=== PATIENT | female | born 1955 | race Caucasian/White ===

== ENCOUNTER → 2020-10-12 09:23 | Outpatient (CLI) | payer OTHER, SELFPAY ==
--- NOTE | ~2020-10-12 | XR_ITS ---
EXAMINATION: XR chest 2V EXAM DATE: 10/12/2020 09:40 INDICATION: J18.9 - Pneumonia, unspecified organism. TECHNIQUE: Frontal and lateral projections of the chest obtained and reviewed. Comparison is made to prior examination from 10/03/2017. FINDINGS: There is moderate chronic hyperinflation. Small amount of left basilar atelectasis unchang ed. The lungs are otherwise clear. There are no pleural effusions. The cardiomediastinal silhouette is within normal limits. There is no pneumothorax suspected. The bones and soft tissues are unrema rkable. IMPRESSION: 1. Left basilar linear atelectasis. 2. Hyperinflation. Reviewed, dictated and finalized at location A. 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
== END ==
PROVIDERS: PCP Family Medicine; Visit Provider Nurse Practitioner Family
DX: J18.9 Pneumonia, unspecified organism (principal); R91.8 Other nonspecific abnormal finding of lung field
CPT/HCPCS: 71046

== ENCOUNTER → 2020-10-27 11:43 | Outpatient (CLI) | payer OTHER, SELFPAY ==
--- NOTE | ~2020-10-27 | US_ITS ---
EXAMINATION: US thyroid DATE: 10/27/2020 11:58 INDICATION: Nontoxic thyroid nodule TECHNIQUE: Multiple ultrasound images of the thyroid were obtained. COMPARISON: None. FINDINGS: The right thyroid lobe measures 4.7 x 1.6 x 1.1 cm. The left thyroid lobe measures 4.2 x 2.0 x 1.9 c m. 2.4 x 1.6 x 2.0 cm wider than tall iso to slightly hypoechoic solid nodule with smooth margins an d without echogenic foci. (TI-RADS 4, moderately suspicious , FNA if >=1.5 cm, annual followup is >1 cm) in the left thyroid lobe. There are a couple additional similar-appearing TI RADS 4 nodules measu ring 8 mm in the left thyroid lobe and 7 mm in the left thyroid lobe. There is normal echotexture, ec hogenicity and vascular flow throughout the remainder of the thyroid gland. IMPRESSION: 1. Three thyroid nodules. Recommend ultrasound guided biopsy of the largest 2.4 cm TI RADS 4 left thy roid nodule. Reviewed, dictated and finalized at location A. BLEACHING PLEATER IMPRESSION: 1. Three thyroid nodules. Recommend ultrasound guided biopsy of the largest 2.4 cm TI RADS 4 left thyroid nodule.
== END ==
PROVIDERS: Visit Provider Physician Assistant Medical
DX: E04.2 Nontoxic multinodular goiter (principal)
CPT/HCPCS: 76536

== ENCOUNTER 2020-11-02 08:59 | Outpatient (CLI) | payer OTHER, SELFPAY ==
--- NOTE | ~2020-11-02 | US_ITS ---
EXAMINATION: US FNA w image guidance DATE: 11/02/2020 10:11 INDICATION: Nontoxic single thyroid nodule COMPARISON: 10/27/2020 TECHNIQUE: A time-out was performed to verify the patient's name, date of , and procedure to be performed . The procedure and its benefits and risks were discussed with the patient. Risks specifically discus sed included bleeding and infection. The patient understood the risks and agreed to proceed. The neck was prepped and draped in the usual sterile manner. 7 mL 1% lidocaine was used for local anesthesia . 6 passes were made with a 25G needle into the lesion. Appropriate needle location was documented with continuous sonographic guidance. The specimens were passed to the lead medical technologist in the room. A sterile bandage was applied. There were no immediate complications. FINDINGS: Grayscale ultrasound images demonstrate biopsy needles advanced into the previously noted 2.4 cm TI R ADS 4 left thyroid nodule. IMPRESSION: 1. Successful ultrasound-guided fine needle aspiration of . Reviewed, dictated and finalized at location A. ECT LEADER
== END 2020-11-02 09:00 | disposition home or self-care (01) ==
PROVIDERS: PCP Family Medicine; Visit Provider Physician Assistant Medical
DX: E04.1 Nontoxic single thyroid nodule (principal)
CPT/HCPCS: 10005; 88173; 88305

== ENCOUNTER 2020-11-27 11:41 | Outpatient (CLI) | payer OTHER, SELFPAY ==
--- NOTE | ~2020-11-27 | XR_ITS ---
EXAMINATION: XR abdomen/kub 1V DATE: 11/27/2020 12:13 INDICATION: Unspecified sharp right-sided abdominal/groin pain. TECHNIQUE: A supine view of the abdomen on 2 radiographs was obtained. COMPARISON: PET/CT dated 12/22/2008 FINDINGS: Cholecystectomy clips in the right upper quadrant. A few small round phleboliths in the pelvis. No di lated gas-filled bowel to suggest obstruction. Nonspecific 3.5 cm round masslike opacity projecting o jaz the mid right kidney. IMPRESSION: 1. Normal bowel gas pattern. 2. Nonspecific 3.5 cm masslike opacity projecting over the right kidney with wide differential includ ing exophytic solid or cystic right renal lesion, loop of bowel or bowel diverticulum. Could consider CT for further evaluation. Reviewed, dictated and finalized at location B. IMPRESSION: 1. Normal bowel gas pattern. 2. Nonspecific 3.5 cm masslike opacity projecting over the right kidney with wi de differential including exophytic solid or cystic right renal lesion, loop of bowel or bowel diverticulum. Could consider CT for further evaluation.
--- NOTE | ~2020-11-27 | XR_ITS ---
EXAMINATION: XR chest 2V DATE: 11/27/2020 12:13 INDICATION: Cough. TECHNIQUE: Frontal and lateral views of the chest were obtained. COMPARISON: Chest 2 views 10/12/2020 FINDINGS: There is mild scarring at the lung apices. No pleural effusion or pneumothorax. The heart s ize is normal. IMPRESSION: 1. Stable mild scarring at the lung apices. Reviewed, dictated and finalized at location A.
[2020-11-27 12:54] LABS: Anion Gap 5 mmol/L (8-16); Blood Urea Nitrogen 16 mg/dL (7-17); Calcium 9.3 mg/dL (8.4-10.2); Carbon Dioxide 28 mmol/L (22-30); Chloride 107 mmol/L (98-107); Estimated Glomerular Filt Rate > 60; Glucose 105 mg/dL (65-105); Sodium 140 mmol/L (137-145)
== END 2020-11-27 11:42 | disposition home or self-care (01) ==
LOC: ANHIMG 11:45
PROVIDERS: PCP Family Medicine; Visit Provider Nurse Practitioner Family
DX: R10.9 Unspecified abdominal pain (principal); R31.9 Hematuria, unspecified; R05 Cough; R91.8 Other nonspecific abnormal finding of lung field
CPT/HCPCS: 36415; 71046; 74018; 80048

== ENCOUNTER 2020-12-01 11:57 | Outpatient (CLI) | payer OTHER, SELFPAY ==
--- NOTE | ~2020-12-01 | CT_ITS ---
EXAMINATION: CT abdomen pelvis wo/w con EXAM DATE: 12/01/2020 12:36 INDICATION: Disorder of the kidney and ureter. Renal mass. TECHNIQUE: Spiral CT of the abdomen without contrast followed by both abdomen and pelvis with 100 cc intravenous Omnipaque 350. Axial, coronal and sagittal images were reviewed. The dose-length produc t (DLP) for this examination was 973.41 mGy-cm. The exposure was tailored according to patient size (auto mA exposure control), and iterative reconstruction (ASIR) was used as additional dose reduction technique. Comparison is made to prior examination from 12/22/2008. FINDINGS: There is left adrenal hyperplasia versus adenoma. Surgical clip in expected location of the right adrenal gland. There are cholecystectomy clips. Pancreas, spleen, liver are unremarkable. No n ephrolithiasis. There is a 1.2 cm left renal cyst medially. Portal and splenic veins are patent. Kid neys enhance symmetrically. There is no hydronephrosis. The uterus is not identified and has likel y been surgically resected. The bladder is unremarkable. There is no retroperitoneal or pelvic lymp hadenopathy. There is mild scattered arteriosclerotic disease. The appendix is not positively visualized. There is no pericecal inflammatory change to suggest appe ndicitis. There is mild sigmoid colonic diverticulosis. There is no adjacent inflammatory change to suggest diverticulitis. There is small sliding gastroesophageal hiatal hernia. There is expected sandra unt of colonic stool. No free intraperitoneal gas. The heart is normal in size. There are no per icardial or pleural effusions. The lung bases are unremarkable. There are no osteoblastic or osteol ytic lesions identified. IMPRESSION: 1. Small left renal cyst. 2. Mild sigmoid diverticulosis. 3. Small hiatal hernia. 4. Surgical changes. Reviewed, dictated and finalized at location A.
== END 2020-12-01 11:58 | disposition home or self-care (01) ==
PROVIDERS: PCP Family Medicine; Visit Provider Nurse Practitioner Family
DX: N28.89 Other specified disorders of kidney and ureter (principal); N28.1 Cyst of kidney, acquired; K44.9 Diaphragmatic hernia without obstruction or gangrene; K57.30 Diverticulosis of large intestine without perforation or abscess without bleeding
CPT/HCPCS: 74178; Q9967

== ENCOUNTER 2020-12-07 08:45 | Outpatient (CLI) | payer OTHER, SELFPAY ==
[2020-12-07 09:08] LABS: Basophils Absolute Auto 0.1 K/mm3 (0.0-0.1); Basophils Percent Auto 0.9 % (0.2-1.2); Eosinophils Absolute Auto 0.4 K/mm3 (0-0.3); Hematocrit 43.3 % (37.0-47.0); Hemoglobin 14.6 g/dL (12.0-15.0); Immature Granulocyte Absolute 0.02 K/mm3 (0.00-0.031); Immature Granulocyte Percent A 0.3 % (0-0.5); Lymphocytes Absolute Auto 3.06 K/mm3 (0.9-3.2); Lymphocytes Percent Auto 39.5 % (18.3-44.2); Mean Corpuscular HGB Conc 33.7 g/dl (32-36); Mean Corpuscular Volume 100.9 fl (80-100); Mean Platelet Volume 9.5 fl (7.4-10.4); Monocytes Absolute Auto 0.8 K/mm3 (0.1-0.6); Monocytes Percent Auto 10.3 % (2.6-8.5); Neutrophils Absolute Auto 3.4 K/mm3 (1.3-6.7); Platelet Count Result 255 k/mm3 (150-375); Red Blood Count 4.29 M/mm3 (4.2-5.4); Red Cell Distribution Width 13.9 % (11.5-14.5); White Blood Count 7.8 K/mm3 (4.5-10.0)
[2020-12-07 09:27] LABS: Anion Gap 5 mmol/L (8-16); Blood Urea Nitrogen 22 mg/dL (7-17); Calcium 8.7 mg/dL (8.4-10.2); Carbon Dioxide 28 mmol/L (22-30); Chloride 107 mmol/L (98-107); Estimated Glomerular Filt Rate > 60; Glucose 88 mg/dL (65-105); Sodium 140 mmol/L (137-145)
== END 2020-12-07 08:46 | disposition home or self-care (01) ==
PROVIDERS: PCP Family Medicine; Visit Provider Nurse Practitioner Family
DX: R31.9 Hematuria, unspecified (principal)
CPT/HCPCS: 36415; 80048; 85025

== ENCOUNTER → 2021-03-01 14:34 | Outpatient (CLI) | payer MEDICARE, OTHER, SELFPAY ==
--- NOTE | ~2021-03-01 | XR_ITS ---
XR knee LT min 4V 03/01/2021 15:01 INDICATION: Left knee pain. PROCEDURE: 4 views left knee COMPARISON: No prior studies for comparison. FINDINGS: Fracture, dislocation or subluxation is not identified. The soft tissues appear within norm al limits. No foreign bodies are identified. IMPRESSION: 1: NO ACUTE BONE OR JOINT ABNORMALITY IDENTIFIED. Reviewed, dictated and finalized at location A.
== END ==
PROVIDERS: PCP Family Medicine; Visit Provider Nurse Practitioner Family
DX: S89.92XA Unspecified injury of left lower leg, initial encounter (principal)
CPT/HCPCS: 73564

== ENCOUNTER → 2021-03-24 08:51 | Outpatient (CLI) | payer MEDICARE, OTHER, SELFPAY ==
--- NOTE | ~2021-03-24 | MR_ITS ---
EXAMINATION: MR knee LT wo con DATE: 03/24/2021 10:14 INDICATION: Unspecified injury of left lower leg, initial encounter. Left knee pain. TECHNIQUE: Magnetic resonance imaging (MRI) of the left knee was performed without intravenous contra st. Sequences included axial PD-weighted FS FSE, coronal PD-weighted FSE and PD-weighted FS FSE, sagi ttal PD-weighted FSE, and sagittal T2-weighted FS FSE. COMPARISON: Left knee radiographs 03/01/2021 FINDINGS: Medial compartment: There is a vertical tear of posterior horn of medial meniscus. Medial compartment cartilage is normal . Lateral compartment: Lateral meniscus is normal. Lateral compartment cartilage is normal. Patellofemoral compartment: Patellar cartilage is normal. Trochlear cartilage is normal. Ligaments and tendons: Anterior and posterior cruciate ligaments are normal. There is a partial tear of medial collateral li gament with surrounding edema. Lateral collateral ligament complex is normal. There is mild patellar tendinopathy. Fluid: There is a small knee joint effusion. There is mild superficial infrapatellar bursitis. IMPRESSION: 1. Tear of medial meniscus. 2. Partial tear of medial collateral ligament (grade 2 sprain). 3. Small knee joint effusion. Reviewed, dictated and finalized at location A.
== END ==
PROVIDERS: Visit Provider Nurse Practitioner Family
DX: S89.92XA Unspecified injury of left lower leg, initial encounter (principal); M25.562 Pain in left knee; S83.222A Peripheral tear of medial meniscus, current injury, left knee, initial encounter; S83.412A Sprain of medial collateral ligament of left knee, initial encounter; M25.462 Effusion, left knee
CPT/HCPCS: 73721

== ENCOUNTER → 2021-09-27 16:21 | Outpatient (CLI) | payer MEDICARE, OTHER, SELFPAY ==
--- NOTE | ~2021-09-27 | XR_ITS ---
XR hip BI 2V w AP pelvis DATE: 09/27/2021 16:52 INDICATION: Hip pain TECHNIQUE: AP pelvis. AP and lateral views of each hip. COMPARISON: 12/01/2020 CT abdomen pelvis 06/30/2018 right hip FINDINGS: The pubic symphysis and sacroiliac joints are intact. No pelvic fracture or bone destructio n. No fracture, dislocation, avascular necrosis or bone destruction of either hip. Osteopenia. IMPRESSION: Osteopenia Reviewed, dictated and finalized at location J. ENGINE BUILDER IMPRESSION: Osteopenia
== END ==
PROVIDERS: PCP Family Medicine; Visit Provider Nurse Practitioner Family
DX: M85.88 Other specified disorders of bone density and structure, other site (principal)
CPT/HCPCS: 73521

== ENCOUNTER 2021-12-13 16:20 | Outpatient (CLI) | payer MEDICARE, OTHER, SELFPAY ==
--- NOTE | ~2021-12-13 | XR_ITS ---
XR chest 2V DATE: 12/13/2021 16:36 INDICATION: Cough. Bronchitis. TECHNIQUE: PA and lateral views COMPARISON: 11/27/2020 PA and lateral chest FINDINGS: Normal heart size. Mild aortic tortuosity. No hilar or mediastinal enlargement. Mild bilate ral apical scarring. No pulmonary infiltrate or consolidation, pleural effusion or pulmonary vascular congestion or pneumothorax is detected. Status post cholecystectomy. Diffuse osteopenia IMPRESSION: No active cardiopulmonary disease Status post cholecystectomy Reviewed, dictated and finalized at location A.
== END 2021-12-13 16:21 | disposition home or self-care (01) ==
PROVIDERS: PCP Family Medicine; Visit Provider Family Medicine
DX: J40 Bronchitis, not specified as acute or chronic (principal); Z90.49 Acquired absence of other specified parts of digestive tract
CPT/HCPCS: 71046

== ENCOUNTER 2021-12-28 12:12 | Outpatient (CLI) | payer MEDICARE, OTHER, SELFPAY ==
--- NOTE | ~2021-12-28 | DEXA_ITS ---
Bone Density Report Name: JESS COREA Age: 66 Sex: Female Ethnicity: White Date of : 1955 Indication: postmenopausal; screening for osteoporosis; cancer; hysterectomy; Referring Provider: TRANG [place] Study: Bone densitometry was performed. Exam Date: December 28, 2021 Accession number: [id number] Bone Density: Region BMD T-score Z-score Classification AP Spine(L1-L4) 0.849 -1.8 0.1 Osteopenia Femoral Neck (Left) 0.712 -1.2 0.4 Osteopenia Total Hip (Left) 0.721 -1.8 -0.5 Osteopenia Femoral Neck (Right) 0.715 -1.2 0.4 Osteopenia Total Hip (Right) 0.832 -0.9 0.4 Normal Total Hip Mean 0.777 -1.4 -0.1 Osteopenia World Health Organization criteria for BMD impression classify patients as: Normal (T-score at or above -1.0), Osteopenia (T-score between -1.0 and -2.5), or Osteoporosis (T-score at or below -2.5). 10-year Fracture Risk(1): Major Osteoporotic Fracture 8.4% Hip Fracture 0.8% Reported Risk Factors: [place] (), Neck BMD=0.715, BMI=29.6 (1) FRAX(R) Version 3.08. Fracture probability calculated for an untreated patient. Fracture probability may be lower if the patient has received treatment. Clinical Information Provided by Patient: Has the following medical conditions: Cancer, Hysterectomy Patient maximum height was 67 Menopause Age: 50 Onset of menses at age 13 Number of children 2 Impression: The patient has low bone mass, based on the Total Spine T-score. The patient has an estimated ten-year risk of hip fracture of 0.8% and an estimated ten-year risk of major fracture of 8.4%, based on the WHO FRAX algorithm. Discussion: BONE DENSITY IS LOW AT ONE OR MORE SKELETAL SITES. This patient's lowest T-score is low at one or more skeletal sites. It meets the World Health Organization's (WHO) criteria for ?low bone mass? (T-score between -1.0 and -2.5). The patient's 10-year risk of fracture as calculated by FRAX is less than the threshold where pharmacological therapy is recommended by the National Osteoporosis Foundation (NOF). However, all treatment decisions require clinical judgment and consideration of individual patient factors, including patient preferences, comorbidities, previous drug use, risk factors not captured in the FRAX model (e.g., frailty, falls, vitamin D deficiency, increased bone turnover, interval significant decline in bone density) and possible under or overestimation of fracture risk by FRAX. The patient should follow a healthful lifestyle (good nutrition with adequate calcium and vitamin D, and appropriate weight-bearing exercise). Follow-Up: Consider repeating this study in 2 to 3 years to reassess this patient's status, or sooner if there is some new clinical indication. Reported by: OBI on 12/31/2021 2:55:00 PM. __
== END 2021-12-28 12:13 | disposition home or self-care (01) ==
LOC: ANHIMG 12:13
PROVIDERS: PCP Family Medicine; Visit Provider Nurse Practitioner Family
DX: M25.559 Pain in unspecified hip (principal); M85.80 Other specified disorders of bone density and structure, unspecified site; R74.8 Abnormal levels of other serum enzymes; M85.88 Other specified disorders of bone density and structure, other site; M85.852 Other specified disorders of bone density and structure, left thigh; M85.851 Other specified disorders of bone density and structure, right thigh
CPT/HCPCS: 36415; 77080; 83036; 84075

== ENCOUNTER 2021-12-28 13:05 | Outpatient (CLI) | payer MEDICARE, OTHER, SELFPAY ==
[2021-12-28 14:03] LABS: Alkaline Phosphatase 124 U/L (38-126)
[2021-12-28 14:24] LABS: Hemoglobin A1C 5.5 % (<5.7)
== END 2021-12-28 13:06 | disposition home or self-care (01) ==
LOC: ANHLAB 13:07
PROVIDERS: PCP Family Medicine; Visit Provider Nurse Practitioner Family
DX: R74.8 Abnormal levels of other serum enzymes (principal); R73.03 Prediabetes
CPT/HCPCS: 36415; 83036; 84075

== ENCOUNTER 2022-03-14 09:26 | Outpatient (CLI) | payer MEDICARE, OTHER, SELFPAY ==
--- NOTE | ~2022-03-14 | MM_ITS ---
EXAMINATION: MM screening sulma BI w gissell HISTORY: Screening TECHNIQUE: Craniocaudal and mediolateral oblique 3-D tomosynthesis images were obtained and synthetic 2-D images were generated. CAD analysis was submitted and interpreted. COMPARISON: No prior mammogram is available for comparison at this institution. BREAST PARENCHYMAL COMPOSITION: The breasts are heterogenously dense, which may obscure small masses FINDINGS: There are benign-appearing breast calcifications. There is no evidence of suspicious mass, calcification, or architectural distortion to suggest malignancy in either breast. There has been no suspicious interval change. IMPRESSION: 1. No mammographic evidence of malignancy. 2. Recommend routine screening mammography in one year. BI-RADS Category 2: Benign finding(s). Reviewed, dictated and finalized at location A.
== END 2022-03-14 09:27 | disposition home or self-care (01) ==
PROVIDERS: PCP Family Medicine; Visit Provider Family Medicine
DX: Z12.31 Encounter for screening mammogram for malignant neoplasm of breast (principal)
CPT/HCPCS: 77063; 77067

== ENCOUNTER 2022-04-24 13:50 | Outpatient (CLI) | payer MEDICARE, OTHER, SELFPAY ==
--- NOTE | ~2022-04-24 | CT_ITS ---
EXAMINATION: CT abdomen pelvis wo con DATE: 04/24/2022 14:08 INDICATION: Left lower quadrant abdominal pain, worse postprandially. Diarrhea. TECHNIQUE: Computed tomography (CT) of the abdomen and pelvis was performed without intravenous contr ast. Automated exposure control and iterative reconstruction technique were employed. Exam dose: 713 .18 mGy-cm total exam DLP. COMPARISON: 12/01/2020 CT abdomen pelvis FINDINGS: There is mild dependent atelectasis in the lingula and both lower lobes. Normal heart size. No pericardial or pleural effusion. Small sliding hiatal hernia. Hepatic steatosis. No hepatic, splenic, pancreatic space-occupying mass lesion is evident. Status post cholecystectomy. No bile duct or pancreatic duct dilatation. Surgical clips in the region of the expected position of the right adrenal gland, which is not visual ized, presumably surgically resected. The left adrenal gland is unremarkable. Approximately 1.3 cm upper pole left renal cyst. The kidneys are otherwise unremarkable. No urinary t ract calculus or hydroureteronephrosis. The urinary bladder is unremarkable. Status post hysterectomy. There is atherosclerotic calcification but normal caliber of the abdominal aorta. No intraperitoneal or retroperitoneal or pelvic mass lesion or adenopathy or ascites. Diverticulosis of the sigmoid colon; no CT evidence of diverticulitis. No bowel obstruction or intrap eritoneal free air. Very small fat-containing umbilical hernia. No suspicious osteolytic or osteoblastic lesions. IMPRESSION: Sigmoid: Diverticulosis; no evidence of diverticulitis Small sliding hiatal hernia. No bowel obstruction or intraperitoneal free air Status post cholecystectomy Hepatic steatosis 1.3 cm upper pole left renal cyst Reviewed, dictated and finalized at Location A. Reviewed, dictated and finalized at location B.
[2022-04-24 14:27] LABS: Basophils Absolute Auto 0.1 K/mm3 (0.0-0.1); Basophils Percent Auto 0.8 % (0.2-1.2); Eosinophils Absolute Auto 0.2 K/mm3 (0-0.3); Eosinophils Percent Auto 2.2 % (0-4.4); Immature Granulocyte Absolute 0.02 K/mm3 (0.00-0.031); Immature Granulocyte Percent A 0.2 % (0-0.5); Lymphocytes Absolute Auto 3.15 K/mm3 (0.9-3.2); Lymphocytes Percent Auto 35.4 % (18.3-44.2); Mean Corpuscular HGB Conc 32.7 g/dl (32-36); Mean Corpuscular Hemoglobin 32.1 pg (26-34); Mean Corpuscular Volume 98.4 fl (80-100); Mean Platelet Volume 9.4 fl (7.4-10.4); Monocytes Absolute Auto 0.7 K/mm3 (0.1-0.6); Monocytes Percent Auto 8.2 % (2.6-8.5); Neutrophils Absolute Auto 4.7 K/mm3 (1.3-6.7); Neutrophils Percent Auto 53.2 % (45.5-73.1); Platelet Count Result 296 k/mm3 (150-375); Red Blood Count 4.98 M/mm3 (4.2-5.4); Red Cell Distribution Width 14.3 % (11.5-14.5); White Blood Count 8.9 K/mm3 (4.5-10.0)
[2022-04-24 14:38] LABS: Alanine Aminotransferase 34 U/L (6-35); Albumin Level 4.4 g/dL (3.5-5.1); Alkaline Phosphatase 128 U/L (38-126); Anion Gap 8 mmol/L (8-16); Aspartate Amino Transferase 25 U/L (14-36); Bilirubin,Total 0.3 mg/dL (0.2-1.3); Blood Urea Nitrogen 23 mg/dL (7-17); Calcium 9.8 mg/dL (8.4-10.2); Carbon Dioxide 25 mmol/L (22-30); Chloride 104 mmol/L (98-107); Estimated Glomerular Filt Rate 55; Glucose 109 mg/dL (65-110); Potassium 4.8 mmol/L (3.4-5.0); Sodium 137 mmol/L (137-145)
== END 2022-04-24 13:51 | disposition home or self-care (01) ==
PROVIDERS: PCP Family Medicine; Visit Provider Nurse Practitioner Family
DX: R10.32 Left lower quadrant pain (principal); Z87.19 Personal history of other diseases of the digestive system; K57.30 Diverticulosis of large intestine without perforation or abscess without bleeding; K44.9 Diaphragmatic hernia without obstruction or gangrene; Z90.49 Acquired absence of other specified parts of digestive tract; K76.0 Fatty (change of) liver, not elsewhere classified; N28.1 Cyst of kidney, acquired
CPT/HCPCS: 36415; 74176; 80053; 85025

== ENCOUNTER 2022-07-23 06:47 | Outpatient (CLI) | payer MEDICARE, OTHER, SELFPAY ==
--- NOTE | ~2022-07-23 | MR_ITS ---
EXAMINATION: MR lumbar spine wo con DATE: 07/23/2022 07:34 INDICATION: Low back pain. Left hip and leg pain. TECHNIQUE: Magnetic resonance imaging (MRI) of the lumbar spine was performed without intravenous con trast. Sequences included sagittal T2-weighted FSE, sagittal T2-weighted FS FSE, sagittal T1-weighted FSE, and axial T2-weighted FSE. COMPARISON: None FINDINGS: There is 3 mm retrolisthesis of L3 on L4. Vertebral body heights are normal. There is moder ately decreased disc height at L2-L3 and mildly decreased disc height at L3-L4. The distal spinal cor d signal intensity is normal. The conus medullaris is at T12. The following disc levels are specifica lly discussed: T12-L1: There is a right central extrusion with 13 mm inferior extension. There is moderate bilateral facet joint osteoarthritis. There is no neural foraminal stenosis. There is mild central canal steno sis. L1-L2: The disc is bulging. There is mild bilateral facet joint osteoarthritis. There is mild bilater al neural foraminal stenosis. There is mild central canal stenosis. L2-L3: The disc is bulging and has an annular fissure. There is mild bilateral facet joint osteoarthr itis. There is mild right neural foraminal stenosis. There is mild central canal stenosis with personal health coach ior decompression. L3-L4: The disc is bulging and has an annular fissure. There is moderate bilateral facet joint osteoa rthritis. There is mild bilateral neural foraminal stenosis. There is mild central canal stenosis. L4-L5: The disc is bulging and has an annular fissure. There is mild bilateral facet joint osteoarthr itis. There is moderate bilateral neural foraminal stenosis. There is mild central canal stenosis. L5-S1: The disc is bulging and has an annular fissure. There is severe bilateral facet joint osteoart hritis. There is mild bilateral neural foraminal stenosis. There is mild central canal stenosis. IMPRESSION: 1. Moderate lumbar spondylosis. Reviewed, dictated and finalized at location A. 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
== END 2022-07-23 06:48 | disposition home or self-care (01) ==
PROVIDERS: PCP Family Medicine; Visit Provider Nurse Practitioner Family
DX: M54.32 Sciatica, left side (principal); M47.896 Other spondylosis, lumbar region
CPT/HCPCS: 72148

== ENCOUNTER 2023-02-12 11:05 | Outpatient (CLI) | payer MEDICARE, OTHER, SELFPAY ==
--- NOTE | 2023-02-12 09:27 | EST_ITS ---
Patient Info Name: Lizy Davis Age: 67 years : 1955 Gender: Female Ht: 67 in Wt: 195 lbs BSA: 2.07 m2 HR: 69 bpm BP: 153 / 81 mmHg Heart Rhythm: Sinus Rhythm Exam Date: 02/12/2023 9:39 AM Exam Location: [facility] Stress Patient Status: Outpatient Admit Date: 02/12/2023 Staff Ordering Physician: Kayla Singh Attending Provider: Kayla Singh Exercise Technologist: Lo Cabrera CT Exercise Physician: Abelardo Chappell DO Exam Type: CA stress test treadmill Study Info Indications R07.89 - Other chest pain A treadmill exercise stress test was performed. Summary 1. 1. Abnormal Darrin exercise stress test for ischemic ST changes by ECG criteria. 2. 2. Reduced functional capacity, achieving 7 METs of workload. 3. 3. Baseline hypertension. 4. 4. Appropriate HR response to exercise. 5. 5. Appropriate HR recovery at 1 minute post exercise. 6. 6. No imaging with stress testing. 7. 7. Patient informed of the above results. Protocol: Darrin Stress ECG Details Stage: REST Duration (min): 3 min : 52 sec Speed (mph): 0.0 Grade (%): 0 HR (bpm): 66 SBP (mmHg): 153 DBP (mmHg): 81 METS: --- Stage: REST Duration (min): 8 min : 29 sec Speed (mph): 0.0 Grade (%): 0 HR (bpm): 75 SBP (mmHg): 153 DBP (mmHg): 81 METS: --- Stage: STAGE 1 Duration (min): 1 min : 0 sec Speed (mph): 1.7 Grade (%): 10 HR (bpm): 103 SBP (mmHg): 153 DBP (mmHg): 81 METS: --- Stage: STAGE 1 Duration (min): 2 min : 0 sec Speed (mph): 1.7 Grade (%): 10 HR (bpm): 123 SBP (mmHg): 153 DBP (mmHg): 81 METS: --- Stage: STAGE 1 Duration (min): 3 min : 0 sec Speed (mph): 1.7 Grade (%): 10 HR (bpm): 130 SBP (mmHg): 175 DBP (mmHg): 80 METS: --- Stage: STAGE 2 Duration (min): 1 min : 0 sec Speed (mph): 2.5 Grade (%): 12 HR (bpm): 136 SBP (mmHg): 175 DBP (mmHg): 80 METS: --- Stage: STAGE 2 Duration (min): 1 min : 38 sec Speed (mph): 2.5 Grade (%): 12 HR (bpm): 144 SBP (mmHg): 175 DBP (mmHg): 80 METS: --- Stage: RECOVERY Duration (min): 0 min : 21 sec Speed (mph): 0.0 Grade (%): 0 HR (bpm): 145 SBP (mmHg): 173 DBP (mmHg): 87 METS: --- Stage: RECOVERY Duration (min): 1 min : 21 sec Speed (mph): 0.0 Grade (%): 0 HR (bpm): 112 SBP (mmHg): 173 DBP (mmHg): 87 METS: --- Stage: RECOVERY Duration (min): 2 min : 21 sec Speed (mph): 0.0 Grade (%): 0 HR (bpm): 93 SBP (mmHg): 173 DBP (mmHg): 87 METS: --- Stage: RECOVERY Duration (min): 3 min : 21 sec Speed (mph): 0.0 Grade (%): 0 HR (bpm): 98 SBP (mmHg): 170 DBP (mmHg): 85 METS: --- Stage: RECOVERY Duration (min): 4 min : 21 sec Speed (mph): 0.0 Grade (%): 0 HR (bpm): 82 SBP (mmHg): 170 DBP (mmHg): 85 METS: --- Stage: RECOVERY Duration (min): 4 min : 22 sec Speed (mph): 0.0 Grade (%): 0 HR (bpm): 8
[2023-02-12 11:47] LABS: Cholesterol 226 mg/dL (0-200); HDL Direct 43 mg/dL; Triglycerides 356 mg/dL (<150)
[2023-02-12 11:57] LABS: LDL Cholesterol Direct 111 mg/dL
== END 2023-02-12 11:06 | disposition home or self-care (01) ==
PROVIDERS: PCP Family Medicine; Referring Provider Internal Medicine Cardiovascular Disease; Visit Provider Nurse Practitioner Family
DX: R07.9 Chest pain, unspecified (principal); R68.84 Jaw pain
CPT/HCPCS: 36415; 80061; 93017

== ENCOUNTER 2023-02-26 08:34 | Day surgery (SDC) | payer MEDICARE, OTHER, SELFPAY ==
[2023-02-25 19:03] VITALS: BMI 30.6
--- NOTE | 2023-02-25 19:41 | SUR.PREOP ---
PER PT, SHE HAS BEEN INSTRUCTED TO TAKE PRE MEDS OF PREDNISONE 50MG PO AT 1930 02/25, 0130 02/26, 0730 02/26 AND BENADRYL 50MG PO AT 0730 02/26. SHE WILL BRING HER LAST DOSE OF PREDNISONE AND BENADRYL TO HOSPITAL IN AM TO TAKE AT 0730.
[2023-02-27 12:08] LABS: Basophils Percent Auto 0.2 % (0.2-1.2); Hematocrit 48.2 % (37.0-47.0); Hemoglobin 15.9 g/dL (12.0-15.0); Immature Granulocyte Absolute 0.04 K/mm3 (0.00-0.031); Immature Granulocyte Percent A 0.5 % (0-0.5); Lymphocytes Absolute Auto 1.32 K/mm3 (0.9-3.2); Lymphocytes Percent Auto 15.6 % (18.3-44.2); Mean Corpuscular Hemoglobin 32.3 pg (26-34); Mean Platelet Volume 9.6 fl (7.4-10.4); Monocytes Absolute Auto 0.1 K/mm3 (0.1-0.6); Monocytes Percent Auto 0.8 % (2.6-8.5); Neutrophils Percent Auto 82.9 % (45.5-73.1); Platelet Count Result 313 k/mm3 (150-375); Red Blood Count 4.92 M/mm3 (4.2-5.4); Red Cell Distribution Width 13.2 % (11.5-14.5); White Blood Count 8.5 K/mm3 (4.5-10.0)
[2023-02-27 15:25] LABS: Anion Gap 9 mmol/L (8-16); Blood Urea Nitrogen 16 mg/dL (7-17); Calcium 9.3 mg/dL (8.4-10.2); Carbon Dioxide 21 mmol/L (22-30); Chloride 109 mmol/L (98-107); Estimated CRCL calculation 77 ml/min; Estimated Glomerular Filt Rate > 60; Glucose 155 mg/dL (65-110); Potassium 4.6 mmol/L (3.4-5.0); Sodium 139 mmol/L (137-145)
== END 2023-02-26 09:00 | disposition home or self-care (01) ==
LOC: ANHCATHLAB 05-08 08:34
PROVIDERS: PCP Family Medicine; Visit Provider Internal Medicine
DX: R94.39 Abnormal result of other cardiovascular function study (principal); Z53.8 Procedure and treatment not carried out for other reasons
CPT/HCPCS: 36415; 80048; 85025

== ENCOUNTER → 2023-05-22 14:12 | Outpatient (CLI) | payer MEDICARE, OTHER, SELFPAY ==
--- NOTE | ~2023-05-22 | XR_ITS ---
EXAMINATION: XR chest 2V DATE: 05/22/2023 14:39 INDICATION: Wheezing. TECHNIQUE: Frontal and lateral views of the chest were obtained. COMPARISON: Chest 2 views 12/13/21 FINDINGS: There is mild scarring at the lung apices. There are small pleural effusions. No pneumothor ax. The heart size is normal. IMPRESSION: 1. Small pleural effusions. 2. Stable mild scarring at the lung apices. Reviewed, dictated and finalized at location E.
== END ==
PROVIDERS: PCP Nurse Practitioner Family; Visit Provider Nurse Practitioner Family
DX: R06.2 Wheezing (principal); J90 Pleural effusion, not elsewhere classified
CPT/HCPCS: 71046

== ENCOUNTER 2023-07-16 16:21 | Outpatient (CLI) | payer MEDICARE, OTHER, SELFPAY ==
--- NOTE | ~2023-07-16 | US_ITS ---
EXAMINATION: US thyroid DATE: 07/16/2023 17:06 INDICATION: Nontoxic single thyroid nodule. TECHNIQUE: Multiple ultrasound images of the thyroid were obtained. COMPARISON: Thyroid ultrasound 10/27/2020, 11/02/2020 FINDINGS: The right thyroid lobe measures 3.6 x 1.4 x 1.2 cm. The left thyroid lobe measures 4.8 x 2.0 x 1.9 c m. In the left thyroid lobe, there is a 2.6 cm solid, isoechoic, wider than tall nodule with smooth margin without echogenic foci (TI-RADS TR3), stable from 10/27/20. Biopsy on 11/02/2020 was benign. In the left thyroid lobe, there is a 9 mm solid, hypoechoic, wider than tall nodule with smooth margin w ithout echogenic foci (TR4), stable from 10/27/20. IMPRESSION: 1. Stable thyroid nodules, likely not clinically significant. No follow-up is needed. Reviewed, dictated and finalized at location E. IMPRESSION: 1. Stable thyroid nodules, likely not clinically significant. No follow-up is n eeded.
== END 2023-07-16 16:22 | disposition home or self-care (01) ==
PROVIDERS: PCP Family Medicine; Visit Provider Physician Assistant Medical
DX: E04.2 Nontoxic multinodular goiter (principal)
CPT/HCPCS: 76536

== ENCOUNTER 2025-02-10 12:22 | Outpatient (CLI) | payer MEDICARE, OTHER, SELFPAY ==
--- NOTE | ~2025-02-10 | US_ITS ---
Thyroid ultrasound. Clinical History: Thyroid nodule COMPARISON: 07/16/2023 Findings: Real-time sonography of the thyroid gland was performed. The right lobe measures 5.0 x 1.8 x 1.7 cm. The left lobe measures 5.3 x 2.4 x 2.3 cm. The isthmus is 1 mm in AP diameter. There is a 2.9 x 2.1 x 1.9 cm minimally hypoechoic solid nodule at the left midpole. There is an kelly tional 0.8 cm minimally hypoechoic solid nodule at the left upper pole. There is a 1.0 x 0.6 x 0.4 cm hypoechoic solid nodule at the left side of the isthmus. Impression: Left-sided thyroid lobe nodules, essentially unchanged from prior exam.. Reviewed, dictated and finalized at [facility]. Impression: Left-sided thyroid lobe nodules, essentially unchanged from prior exam..
== END 2025-02-10 12:23 | disposition home or self-care (01) ==
LOC: MICIMG 12:24
PROVIDERS: PCP Family Medicine; Visit Provider Internal Medicine Endocrinology, Diabetes & Metabolism
DX: E04.2 Nontoxic multinodular goiter (principal)
CPT/HCPCS: 76536

== ENCOUNTER 2025-03-21 13:45 | Outpatient (RCR) | payer MEDICARE, OTHER, SELFPAY | END 2025-03-23 10:12 | disposition home or self-care (01) | LOC: ANHCPREHAB 13:45 | PROVIDERS: PCP Family Medicine | DX: Z95.5 Presence of coronary angioplasty implant and graft (principal) | CPT/HCPCS: 93798 ==

== ENCOUNTER 2025-07-26 10:28 | Outpatient (CLI) | payer MEDICARE, OTHER, SELFPAY ==
--- NOTE | ~2025-07-26 | XR_ITS ---
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 Technique: 2 views obtained. Findings: The lungs are clear, no effusion. No pneumothorax. Heart is normal size. Mediastinal and hilar contours are within normal limits. Poststernotomy Impression: No acute cardiopulmonary abnormality. Reviewed, dictated and finalized at location P. ENGER CAR INSPECTOR Impression: No acute cardiopulmonary abnormality.
== END 2025-07-26 10:29 | disposition home or self-care (01) ==
PROVIDERS: PCP Family Medicine
DX: R05.9 Cough, unspecified (principal)
CPT/HCPCS: 71046